=== PATIENT | female | born 1945 | race Caucasian/White ===

== ENCOUNTER 2022-10-17 09:34 | Day surgery (SDC) | payer MEDICARE, MEDICAID, SELFPAY ==
[2022-10-17 10:02] VITALS: BP 148/87; PULSE 81; RESP 18; TEMP 36.4; O2SAT 99
[2022-10-17] MEDS: Tropicam./Phenyleph. (1/2.5%) 5 ML BTL OS ×3 (10:15→10:28)
--- NOTE | 2022-10-17 11:19 | ANES.PREOP_ITS ---
General Info Date of Service Date Performed: 10/17/22 Height: 5 ft 1 in Weight: 91.7 kg Body Mass Index (BMI): 38.2 Surgical Procedure: Operation Date: 10/17/22 11:25 Proposed Procedure Side Surgeon p Cataract Extraction with IOL Implant Left Cholo Magallanes MD Meds Allergies and Home Medications Allergies Allergy/AdvReac Type Severity Reaction Status Date / Time cortisone Allergy Unknown Other (See Unverified 10/17/22 10:07 Comment) Home Medication Medication Instructions Recorded amlodipine 5 mg tablet 5 mg PO DAILY 10/15/22 bupropion HCl 150 mg 24 hr tablet, 150 mg PO DAILY 10/15/22 extended release bupropion HCl 300 mg 24 hr tablet, 300 mg PO DAILY 10/15/22 extended release (Wellbutrin XL) lisinopril 40 mg tablet 40 mg PO DAILY 10/15/22 lorazepam 0.5 mg tablet 0.5 mg PO DIRECTED 10/15/22 metoprolol succinate 50 mg 50 mg PO DAILY 10/15/22 tablet,extended release 24 hr simvastatin 10 mg tablet 10 mg PO HS 10/15/22 warfarin 5 mg tablet 5 mg PO DIRECTED 10/15/22 Current Visit Medications: Current Medications Generic Name Dose Route Start Last Admin Trade Name Freq PRN Reason Stop Dose Admin Acetaminophen 1,000 mg 10/17/22 06:00 Acetaminophen 500 Mg Tab PO 11/16/22 05:59 Q4H PRN PRN Balanced Salt Solution 500 ml 10/17/22 06:00 Balanced Salt Soln.-Plus 500 Ml Bag OP 11/16/22 05:59 DIRECTED [facility] Miscellaneous Medication 0 ml 10/17/22 06:00 Prednisolone 1%, Moxifloxacin 0.5%, Nepafenac 0.1% 5ml Btl OS 11/16/22 05:59 DIRECTED [facility] Miscellaneous Medication 0 ml 10/17/22 06:00 10/17/22 10:28 Tropicam./Phenyleph. 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 states this was placed 1987 Last interrogated 07/2021 HLD (hyperlipidemia) HTN (hypertension) Surgical History Surgical History Aortic valve replaced Per pt. states this was done in [place] 1988 Tobacco Smoking/Tobacco Use Status: Never Alcohol Alcohol Intake: never Substance Use Substance use: Never Substance use type: does not use Vital Signs and Lab Results Vital Signs Most Recent Vital Signs in EMR: Most Recent Vital Signs Temp Pulse Resp BP Pulse Ox 36.4 C L 81 18 148/87 H 99 10/17/22 10:02 10/17/22 10:02 10/17/22 10:02 10/17/22 10:02 10/17/22 10:02 Lab Results Blood Type / Crossmatch: No Data to Display Complete Blood Count: No Data to Display Complete Metabolic Panel: No Data to Display Liver Function Panel: No Data to Display Coagulation Panel: No Data to Display Cardiac Panel: No Data to Display Arterial Blood Gas: No Data to Display Venous Blood Gas: No Data to Display Pancreas Panel: 2 No Data to Display Thyroid Panel: No Data to Display Infectious Disease: No Data to Display Blood Cultures: No Data to Display Toxicology Panel: No Data to Display Anesthesia Assessment and Plan Anesthesia History Personal History: No History of Anesthesia Complications Family History: No Family History of Anesthesia Complications Exercise Tolerance Exercise Tolerance: Metabolic Equivalents>4 Pertinent Negatives Pertinent Negatives: No Symptoms of GERD Cardiac & Pulmonary Exam Cardiac Exam: Normal S1/S2 Heart Sounds Pulmonary Exam: Clear Bilateral Breath Sounds Implantable Cardiac Device Does patient have a Pacemaker or an ICD?: Yes Device Environmental Science Technician:: [employer] [id number] Reason for Placement:: High Grade AV block Date of Last Device Interrogation:: 07/14/2022 Airway Exam Known Difficult Airway: No Mallampati Class: 2 Mouth Opening: Normal (> 3cm) Thyromental Distance: Greater than 3 cm Neck Range of Motion: Full ROM Neck Circumference: Normal Teeth Condition: Normal Dentition ASA Classification ASA Score: ASA 3 Emergency Case?: No NPO Status NPO Status: NPO Clears >2 hours, Solids >8 hours Anesthesia Plan Resuscitation Status: Full Code Anesthesia Technique: MAC Anesthesia Airway Planned: Natural Airway Monitors Used: Standard Monitors
[2022-10-17 11:21] VITALS: BMI 38.2
[2022-10-17] MEDS: Balanced Salt Soln.-PLUS 500 ML BAG OP (11:39)
[2022-10-17] MEDS: Tetracaine 0.5% 4 ML BTL OS (11:41)
[2022-10-17] MEDS: Duovisc Viscoelastic System EACH 1 EACH (11:41)
[2022-10-17] MEDS: Lidocaine 1% Pres-Free 5 ML VIAL (11:42)
[2022-10-17] MEDS: Phenylephrine/Lidocaine (15/10) MG/ML 1 ML VIAL (11:43)
[2022-10-17] MEDS: Povidone-Iodine Ophth 30 ML BTL (11:44)
--- NOTE | 2022-10-17 11:58 | W.PM.DSUDISC ---
Date of service: 10/17/22 Time of Service: 11:59 Discharge Plan Disposition Patient Disposition: Home Discharge Details Attending Provider: Cholo Magallanes Primary Care Provider: Jaxson Etienne Home Meds and New Rx's Prescriptions: No Action metoprolol succinate 50 mg Tablet Extended Release 24 Hr 50 mg PO DAILY simvastatin 10 mg Tablet 10 mg PO HS amlodipine 5 mg Tablet 5 mg PO DAILY lorazepam 0.5 mg Tablet 0.5 mg PO DIRECTED warfarin 5 mg Tablet 5 mg PO DIRECTED Rx Instructions: 0.5 mg thurs, 1 tab Mon, tues, wed, fri, sat, sun. lisinopril 40 mg Tablet 40 mg PO DAILY bupropion HCl [Wellbutrin XL] 300 mg Tablet Extended Release 24 Hr 300 mg PO DAILY bupropion HCl 150 mg Tablet Extended Release 24 Hr 150 mg PO DAILY Discharge Instructions Stand Alone Forms: Post-op Topical Cataract, Xochitl Flood (DSU) Discharge Orders Discharge Orders: Discharge Order (Routine); Ordered 10/17/22 Ordered By: Cholo Magallanes DS: Diagnosis Discharge Diagnosis (1) Nuclear age-related cataract, left eye: Status: Resolved (2) Cortical age-related cataract, left eye: Status: Resolved
--- NOTE | 2022-10-17 11:59 | W.PM.OP ---
Date of service: 10/17/22 Time of Service: 11:59 Operative Note Operative Note DATE OF PROCEDURE: 10/17/22 PRE-OP DIAGNOSIS: Nuclear/cortical cataract, left eye POST-OP DIAGNOSIS: same PROCEDURE: Cataract extraction using phacoemulsification with intraocular lens implant, left eye SURGEON: Cholo Magallanes ANESTHESIA TYPE: Local By Surgeon and MAC Refer to Anesthesia Record PATHOLOGY: none sent COMPLICATIONS: None Patient was transported to: same day Patient's condition: stable Implants: Vance Clareon [id number] Indications: Progressive decreased vision due to cataract, left eye Procedure Description: CATARACT SURGERY OPERATIVE REPORT PREOPERATIVE DIAGNOSIS: Nuclear/cortical cataract, left eye POSTOPERATIVE DIAGNOSIS: Same OPERATION: Cataract extraction using phacoemulsification with posterior chamber intraocular lens implant, left eye. IOL: IOL Locomotive Crane Operator/Model: Vance Clareon [id number] IOL Power: + 22.5 diopters IOL Serial Number: [id number] Optic Diameter: 6.0mm Haptic/Overall Diameter: 13.0mm PHACO INFO: [email or web address] Vision System with OZil and Active Fluidics Cumulative Dispersed Energy (CDE): 11.56 seconds SURGEON: Cholo Magallanes MD, LIZ ANESTHESIA: Monitored Anesthesia Care (MAC), with local sub-tenon's anesthetic infiltration COMPLICATIONS: None SPECIMENS: None INDICATIONS FOR PROCEDURE: The patient is a 77-year-old lady with history of diminished visual acuity in her left eye secondary to the development of nuclear/cortical cataract. She is significantly symptomatic that she desires cataract surgery and attempt to improve and maximize her vision. The option of cataract surgery was offered to the patient and she wished to proceed. See office notes for detailed information. PROCEDURE: The correct surgical eye was identified and marked as the left eye and the pupil was dilated in the preoperative area using mydriatics and cycloplegics. The dilated pupil size was 7.0 mm. The patient elected to proceed without oral sedation. The patient was brought to the operating room where cardiopulmonary monitoring was instituted and surgical time-out was performed, confirming the correct operative eye and IOL power. Topical anesthesia was administered and ophthalmic povidone-iodine 5% was instilled into the conjunctival fornices. The anuradha-ocular area was prepped with Betadine 10% solution and draped in the usual sterile fashion for intraocular surgery, including an aperture drape. A Tegaderm transparent film dressing was cut in half and used to cover the lashes and lid margins. Care was taken to sequester the lashes and lid margins under the Tegaderm dressing. A lid speculum was placed between the lids of the operative eye and the Vance Lux[employer] Revalia operating microscope was maneuvered into position. Cinthya scissors were then used to make a conjunctival buttonhole approximately 6mm posterior to the limbus in the inferonasal quadrant. Blunt dissection was carried out to expose bare sclera, and a blunt-tipped sub-tenon?s anesthesia cannula was introduced and passed posteriorly along the globe where non-preserved plain lidocaine was injected into posterior sub-Tenon?s space. A sideport knife was used to make a paracentesis port. Intraocular phenylephrine/lidocaine was injected into the anterior chamber. The anterior chamber was then filled with viscoelastic. A keratome knife was used construct a two-plane clear corneal tunnel extending 2.0mm into clear cornea. A flap was raised on the anterior capsule and capsulorhexis forceps were used to complete a continuous curvilinear capsulorhexis of 5.0 mm. Balanced salt solution was then used to perform cortical cleaving hydrodissection and nuclear hydrodelineation until the lens could be freely rotated within the capsular bag. The lens nucleus was then disassembled and removed within the capsular bag and iris plane using phacoemulsification. Residual cortical material was removed using the irrigation/aspiration handpiece. The posterior capsule was carefully polished to remove as much residual lens epithelial cells as safely possible. The capsular bag was then inflated and the anterior chamber deepened with viscoelastic. The lens implant described above was inserted into the capsular bag using the Vance Autonome Injector. A Kuglen hook was used to dial the IOL into position. Residual viscoelastic was then removed first from posterior to the IOL, then from the anterior chamber using the I/A handpiece. The lens implant was noted to center nicely within the capsular bag. The incisions were stromally hydrated, and the anterior chamber was reformed using BSS. Then 0.5cc of moxifloxacin 1.0mg/ml were injected into the capsular bag and anterior chamber. The incisions were checked with a Weck spear and found to be secure. Several drops of ophthalmic povidone-iodine 5% were then applied to the eye followed by two drops of Imprimis combination prednisolone/moxifloxacin/nepafenac solution. The drapes were removed and a clear plastic protective eye shield was placed over the eye. The patient was then returned to Same Day Surgery in stable condition.
[2022-10-17 12:00] VITALS: BP 127/99; PULSE 80; RESP 16; TEMP 36; O2SAT 100
--- NOTE | 2022-10-17 12:26 | W.ANESPOSTOP ---
Postoperative Evaluation Date, Time and Location Date Performed: 10/17/22 Time Performed: 12:10 Patient Location: Day Surgery Unit Vital Signs Most Recent Imported Vital Signs: Most Recent Vital Signs Temp Pulse Resp BP Pulse Ox 36.0 C L 80 16 127/99 H 100 10/17/22 12:15 10/17/22 12:15 10/17/22 12:15 10/17/22 12:15 10/17/22 12:15 Pain Score Most Recent Pain Score: Most Recent Pain Score Pain Level 0 10/17/22 12:15 Assessment Mental Status: Awake (Alert & Oriented to Patient Baseline) Airway and Respiratory Function: Patent airway with normal (patient baseline) respiratory exam Cardiovascular Function: Hemodynamically Stable Hydration Status: Adequately Hydrated Nausea & Vomiting: No Nausea or Vomiting Pain: Pt. Denies Any Pain Peripheral Nerve Block: Patient did not receive a nerve block
== END 2022-10-17 12:40 | disposition home or self-care (01) ==
PROVIDERS: PCP Family Medicine; Visit Provider Ophthalmology
PROC: (CPT 66984; principal; 2022-10-17 11:15)
DX: H25.12 Age-related nuclear cataract, left eye (principal); H25.012 Cortical age-related cataract, left eye; I10 Essential (primary) hypertension
CPT/HCPCS: 66984; V2632

== ENCOUNTER 2022-10-31 09:46 | Day surgery (SDC) | payer MEDICARE, MEDICAID, SELFPAY ==
[2022-10-31 10:12] VITALS: BP 140/79; PULSE 68; RESP 16; TEMP 36.5; O2SAT 100
[2022-10-31] MEDS: Tropicam./Phenyleph. (1/2.5%) 5 ML BTL OD ×3 (10:24→10:39)
--- NOTE | 2022-10-31 10:54 | W.ANESPRE ---
General Info Date of Service Date Performed: 10/31/22 Height: 5 ft 1 in Weight: 92.5 kg Body Mass Index (BMI): 38.5 Surgical Procedure: Operation Date: 10/31/22 11:40 Proposed Procedure Side Surgeon p Cataract Extraction with IOL Implant Right Cholo Magallanes MD Meds Allergies and Home Medications Allergies Allergy/AdvReac Type Severity Reaction Status Date / Time cortisone Allergy Unknown Other (See Unverified 10/31/22 10:04 Comment) Home Medication Medication Instructions Recorded amlodipine 5 mg tablet 5 mg PO DAILY 10/15/22 lisinopril 40 mg tablet 40 mg PO DAILY 10/15/22 lorazepam 0.5 mg tablet 0.5 mg PO DIRECTED 10/15/22 metoprolol succinate 50 mg 50 mg PO DAILY 10/15/22 tablet,extended release 24 hr simvastatin 10 mg tablet 10 mg PO HS 10/15/22 warfarin 5 mg tablet 5 mg PO DIRECTED 10/15/22 Current Visit Medications: Current Medications Generic Name Dose Route Start Last Admin Trade Name Freq PRN Reason Stop Dose Admin Acetaminophen 1,000 mg 10/31/22 06:00 Acetaminophen 500 Mg Tab PO 11/30/22 05:59 Q4H PRN PRN Balanced Salt Solution 500 ml 10/31/22 06:00 Balanced Salt Soln.-Plus 500 Ml Bag OP 11/30/22 05:59 [facility] Miscellaneous Medication 0 ml 10/31/22 06:00 Prednisolone 1%, Moxifloxacin 0.5%, Nepafenac 0.1% 5ml Btl OD 11/30/22 05:59 [facility] Miscellaneous Medication 0 ml 10/31/22 06:00 10/31/22 10:39 Tropicam./Phenyleph. 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 states this was placed 1987 Last interrogated 07/2021 HLD (hyperlipidemia) HTN (hypertension) Surgical History Surgical History (Updated 10/31/22 @ 10:04 by Berkley Jasso) Aortic valve replaced Per pt. states this was done in [place] 1988 Hx of cataract removal with insertion of prosthetic lens Tobacco Smoking/Tobacco Use Status: Never Alcohol Alcohol Intake: never Substance Use Substance use: Never Substance use type: does not use Vital Signs and Lab Results Vital Signs Most Recent Vital Signs in EMR: Most Recent Vital Signs Temp Pulse Resp BP Pulse Ox 36.5 C 68 16 140/79 100 10/31/22 10:12 10/31/22 10:12 10/31/22 10:12 10/31/22 10:12 10/31/22 10:12 Lab Results Blood Type / Crossmatch: No Data to Display Complete Blood Count: No Data to Display Complete Metabolic Panel: No Data to Display Liver Function Panel: No Data to Display Coagulation Panel: No Data to Display Cardiac Panel: No Data to Display Arterial Blood Gas: No Data to Display Venous Blood Gas: No Data to Display Pancreas Panel: No Data to Display Thyroid Panel: No Data to Display Infectious Disease: No Data to Display Blood Cultures: No Data to Display Toxicology Panel: No Data to Display Anesthesia Assessment and Plan Anesthesia History Personal History: No History of Anesthesia Complications Family History: No Family History of Anesthesia Complications and Malignant Hyperthermia Exercise Tolerance Exercise Tolerance: Metabolic Equivalents>4 Pertinent Negatives Pertinent Negatives: No Symptoms of GERD Cardiac & Pulmonary Exam Cardiac Exam: Normal S1/S2 Heart Sounds Pulmonary Exam: Clear Bilateral Breath Sounds Implantable Cardiac Device Does patient have a Pacemaker or an ICD?: Yes Device Wire Drawing Setter:: [employer] Shahbaz [id number] Reason for Placement:: NA Date of Last Device Interrogation:: NA Airway Exam Known Difficult Airway: No Mallampati Class: 2 Mouth Opening: Normal (> 3cm) Thyromental Distance: Greater than 3 cm Neck Range of Motion: Full ROM Neck Circumference: Normal Teeth Condition: Normal Dentition ASA Classification ASA Score: ASA 3 Emergency Case?: No NPO Status NPO Status: NPO Clears >2 hours, Solids >8 hours Anesthesia Plan Resuscitation Status: Full Code Anesthesia Technique: MAC Anesthesia Airway Planned: Natural Airway Monitors Used: Standard Monitors
[2022-10-31 10:58] VITALS: BMI 38.5
[2022-10-31] MEDS: Balanced Salt Soln.-PLUS 500 ML BAG OP (11:19)
[2022-10-31] MEDS: Lidocaine 1% Pres-Free 5 ML VIAL (11:20)
[2022-10-31] MEDS: Tetracaine 0.5% 4 ML BTL OD (11:20)
[2022-10-31] MEDS: Duovisc Viscoelastic System EACH 1 EACH (11:21)
[2022-10-31] MEDS: Phenylephrine/Lidocaine (15/10) MG/ML 1 ML VIAL (11:22)
[2022-10-31] MEDS: Povidone-Iodine Ophth 30 ML BTL (11:22)
[2022-10-31 11:34] VITALS: BP 132/82; PULSE 77; RESP 16; TEMP 36.4; O2SAT 100
--- NOTE | 2022-10-31 11:38 | ROE_ITS ---
Date of service: 10/31/22 Time of Service: 11:38 Operative Note Operative Note DATE OF PROCEDURE: 10/31/22 PRE-OP DIAGNOSIS: Nuclear/cortical cataract, right eye POST-OP DIAGNOSIS: same PROCEDURE: Cataract extraction using phacoemulsification with intraocular lens implant, right eye SURGEON: Cholo Magallanes ANESTHESIA TYPE: Local By Surgeon and MAC Refer to Anesthesia Record ESTIMATED BLOOD LOSS: 0 PATHOLOGY: none sent COMPLICATIONS: None Patient was transported to: same day Patient's condition: stable Implants: Vance Clareon [id number] Indications: Progressive decreased vision due to cataract, right eye Procedure Description: CATARACT SURGERY OPERATIVE REPORT PREOPERATIVE DIAGNOSIS: Nuclear/cortical cataract, right eye POSTOPERATIVE DIAGNOSIS: Same OPERATION: Cataract extraction using phacoemulsification with posterior chamber intraocular lens implant, right eye. IOL: IOL Supervisor Dials/Model: Vance Clareon [id number] IOL Power: + 22.0 diopters IOL Serial Number: [id number] Optic Diameter: 6.0mm Haptic/Overall Diameter: 13.0mm PHACO INFO: V[employer] Vision System with OZil and Active Fluidics Cumulative Dispersed Energy (CDE): 11.57 seconds SURGEON: Cholo Magallanes MD, LIZ ANESTHESIA: Monitored Anesthesia Care (MAC), with local sub-tenon's anesthetic infiltration COMPLICATIONS: None SPECIMENS: None INDICATIONS FOR PROCEDURE: The patient is a 77-year-old lady with history of diminished visual acuity in both eyes secondary to the development of bilateral nuclear/cortical cataract. She has already undergone cataract surgery in the left eye and is doing well postoperatively. She now presents for cataract surgery in the right eye. See office notes for detailed information. PROCEDURE: The correct surgical eye was identified and marked as the right eye and the pupil was dilated in the preoperative area using mydriatics and cycloplegics. The dilated pupil size was 7.0 mm. The patient elected to proceed without oral sedation. The patient was brought to the operating room where cardiopulmonary monitoring was instituted and surgical time-out was performed, confirming the correct operative eye and IOL power. Topical anesthesia was administered and ophthalmic povidone-iodine 5% was instilled into the conjunctival fornices. The anuradha-ocular area was prepped with Betadine 10% solution and draped in the usual sterile fashion for intraocular surgery, including an aperture drape. A Tegaderm transparent film dressing was cut in half and used to cover the lashes and lid margins. Care was taken to sequester the lashes and lid margins under the Tegaderm dressing. A lid speculum was placed between the lids of the operative eye and the Ch[employer]-Rox operating microscope was maneuvered into position. Cinthya scissors were then used to make a conjunctival buttonhole approximately 6mm posterior to the limbus in the inferonasal quadrant. Blunt dissection was carried out to expose bare sclera, and a blunt-tipped sub-tenon?s anesthesia cannula was introduced and passed posteriorly along the globe where non- preserved plain lidocaine was injected into posterior sub-Tenon?s space. A sideport knife was used to make a paracentesis port. Intraocular phenylephrine/lidocaine was injected into the anterior chamber. The anterior chamber was then filled with viscoelastic. A keratome knife was used to construct a two--plane clear corneal tunnel extending 2.0mm into clear cornea. A flap was raised on the anterior capsule and capsulorhexis forceps were used to complete a continuous curvilinear capsulorhexis of 5.0 mm. Balanced salt solution was then used to perform cortical cleaving hydrodissection and nuclear hydrodelineation until the lens could be freely rotated within the capsular bag. The lens nucleus was then disassembled and removed within the capsular bag and iris plane using phacoemulsification. Residual cortical material was removed using the I/A handpiece. The posterior capsule was carefully polished to remove as much residual lens epithelial cells as safely possible. The capsular bag was then inflated and the anterior chamber deepened with cohesive viscoelastic. The lens implant described above was inserted into the capsular bag using the Vance Autonome Injector. A Kuglen hook was used to dial the IOL into position. Residual viscoelastic was then removed first from posterior to the IOL, then from the anterior chamber using the I/A handpiece. The lens implant was noted to center nicely within the capsular bag. The incisions were stromally hydrated, and the anterior chamber was reformed using BSS. Then 0.5cc of moxifloxacin 1.0mg/ml were injected into the capsular bag and anterior chamber. The incisions were checked with a Weck spear and found to be secure. Several drops of ophthalmic povidone-iodine 5% were then applied to the eye followed by two drops of Imprimis combination prednisolone/moxifloxacin/nepafenac solution. The drapes were removed and a clear plastic protective eye shield was placed over t he eye. The patient was then returned to Same Day Surgery in stable condition.
--- NOTE | 2022-10-31 11:38 | W.PM.DSUDISC ---
Date of service: 10/31/22 Time of Service: 11:38 Discharge Plan Disposition Patient Disposition: Home Discharge Details Attending Provider: Cholo Magallanes Primary Care Provider: Jaxson Etienne Home Meds and New Rx's Prescriptions: No Action metoprolol succinate 50 mg Tablet Extended Release 24 Hr 50 mg PO DAILY simvastatin 10 mg Tablet 10 mg PO HS amlodipine 5 mg Tablet 5 mg PO DAILY lorazepam 0.5 mg Tablet 0.5 mg PO DIRECTED warfarin 5 mg Tablet 5 mg PO DIRECTED Rx Instructions: 0.5 mg thurs, 1 tab Mon, tues, wed, fri, sat, sun. lisinopril 40 mg Tablet 40 mg PO DAILY Discharge Instructions Stand Alone Forms: Post-op Topical Cataract, Xochitl Flood ([facility]U) Discharge Orders Discharge Orders: Discharge Order (Routine); Ordered 10/31/22 Ordered By: Cholo Magallanes DS: Diagnosis Discharge Diagnosis (1) Nuclear age-related cataract, right eye: Status: Resolved (2) Cortical age-related cataract, right eye: Status: Resolved
--- NOTE | 2022-10-31 12:00 | W.ANESPOSTOP ---
Postoperative Evaluation Date, Time and Location Date Performed: 10/31/22 Time Performed: 11:42 Patient Location: Day Surgery Unit Vital Signs Most Recent Imported Vital Signs: Most Recent Vital Signs Temp Pulse Resp BP Pulse Ox 36.4 C L 77 16 132/82 100 10/31/22 11:34 10/31/22 11:34 10/31/22 11:34 10/31/22 11:34 10/31/22 11:34 Pain Score Most Recent Pain Score: Most Recent Pain Score Pain Level 0 10/31/22 11:34 Assessment Mental Status: Awake (Alert & Oriented to Patient Baseline) Airway and Respiratory Function: Patent airway with normal (patient baseline) respiratory exam Cardiovascular Function: Hemodynamically Stable Hydration Status: Adequately Hydrated Nausea & Vomiting: No Nausea or Vomiting Pain: Pt. Denies Any Pain Peripheral Nerve Block: Patient did not receive a nerve block
== END 2022-10-31 12:08 | disposition home or self-care (01) ==
PROVIDERS: PCP Family Medicine; Visit Provider Ophthalmology
PROC: (CPT 66984; principal; 2022-10-31 11:30)
DX: H25.11 Age-related nuclear cataract, right eye (principal); H25.011 Cortical age-related cataract, right eye; I10 Essential (primary) hypertension
CPT/HCPCS: 66984; V2632